=== PATIENT | female | born 1975 | race Caucasian/White ===

== ENCOUNTER 2016-05-11 14:12 | Emergency (ER) | payer OTHER ==
[~2016-05-11] VITALS: Ht 170.2 cm; Wt 85.4 kg
[~2016-05-11 14:12] MED LIST: EFFEXOR XR150 MG PO; FLEXERIL10 MG PO; MOTRIN800 MG PO; NORCO 5/3251 TABLET PO; PEN-VEE K,VEET500 MG PO; VICODIN,LORT1 TABLET PO; VYVANSE40 MG PO
[2016-05-11 16:42] VITALS: BP 120/77
== END 2016-05-11 16:43 | disposition home or self-care (01) ==
LOC: EME 14:12
DX: T14.8 Other injury of unspecified body region (principal); S05.11XA Contusion of eyeball and orbital tissues, right eye, initial encounter; S91.311A Laceration without foreign body, right foot, initial encounter; M79.645 Pain in left finger(s); Y04.0XXA Assault by unarmed brawl or fight, initial encounter; Y92.411 Interstate highway as the place of occurrence of the external cause; Y07.9 Unspecified perpetrator of maltreatment and neglect
CPT/HCPCS: 73140; 73630; 99281; 99284

== ENCOUNTER 2016-07-15 00:02 | Emergency (ER) | payer OTHER ==
[~2016-07-15] VITALS: Ht 170.2 cm; Wt 91.8 kg
[2016-07-15 00:11] VITALS: BP 96/86
[2016-07-15] MEDS ORDERED: ULTRAM50 MG PO (17:18)
[2016-07-15] MEDS ORDERED: PEN-VEE K,VEET500 MG PO (17:18)
== END 2016-07-15 02:20 | disposition left against medical advice (07) ==
LOC: EME 00:02
DX: K08.89 Other specified disorders of teeth and supporting structures (principal); Z53.21 Procedure and treatment not carried out due to patient leaving prior to being seen by health care provider

== ENCOUNTER 2016-07-15 16:46 | Emergency (ER) | payer OTHER ==
[~2016-07-15] VITALS: Ht 170.2 cm; Wt 91.2 kg
[2016-07-15] MEDS ORDERED: ULTRAM50 MG PO (17:18)
[2016-07-15] MEDS ORDERED: PEN-VEE K,VEET500 MG PO (17:18)
[2016-07-15 17:56] VITALS: BP 139/84
== END 2016-07-15 17:57 | disposition home or self-care (01) ==
LOC: EME 16:46
DX: K02.9 Dental caries, unspecified (principal)
CPT/HCPCS: 99281; 99282

== ENCOUNTER 2016-12-17 15:54 | Emergency (ER) | payer OTHER ==
[~2016-12-17] VITALS: Ht 170.2 cm; Wt 89.5 kg
[~2016-12-17 15:54] MED LIST changes: +ULTRAM50 MG PO
[2016-12-17] MEDS ORDERED: VYVANSE60 MG PO (16:18)
[2016-12-17] MEDS ORDERED: EFFEXOR XR150 MG PO (16:18)
[2016-12-17 17:24] LABS: HEMATOCRIT 36.1 % (36.0-46.0); MCH 26.7 PG (29.0-34.0); MCHC 31.9 G/DL (30.0-36.0); MCV 83.8 FL (83-99); MEAN PLAT.VOLUME 9.4 uM^3 (9.5-12.4); PLATELET COUNT 243 K/uL (156-360); RBC DIS.WIDTH-CV 12.8 % (11.8-14.6); RBC DIS.WIDTH-SD 39.3 % (39-53); RED BLOOD COUNT 4.31 M/uL (3.80-5.20); WHITE BLOOD COUNT 7.7 K/uL (4.1-10.2)
[2016-12-17 17:33] LABS: CHLORIDE 103 mEq/L (99-109); POTASSIUM 2.9 mEq/L (3.7-5.4); SODIUM 137 mEq/L (136-147)
[2016-12-17 17:35] LABS: GLUCOSE 78 mg/dL (70-99)
[2016-12-17 17:37] LABS: ANION GAP 12 MEQ/L (2-14)
[2016-12-17 17:39] LABS: GFR ESTIMATE (CALCULATED) > 59 mL/min/
[2016-12-17 17:40] LABS: UREA NITROGEN (BUN) 8 mg/dL (9-23)
[2016-12-17 17:47] LABS: QUANTITATIVE HCG < 4.0 MIU/ML
[2016-12-17] MEDS ORDERED: NORCO 5/3251 TABLET PO (21:46)
[2016-12-17 21:57] VITALS: BP 122/74
== END 2016-12-17 22:01 | disposition home or self-care (01) ==
LOC: EME 15:54
PROVIDERS: Emergency Medicine
DX: S00.12XA Contusion of left eyelid and periocular area, initial encounter (principal); S49.92XA Unspecified injury of left shoulder and upper arm, initial encounter; S02.5XXA Fracture of tooth (traumatic), initial encounter for closed fracture; Y09 Assault by unspecified means; Y07.01 Husband, perpetrator of maltreatment and neglect; Z87.891 Personal history of nicotine dependence
CPT/HCPCS: 70450; 70480; 70498; 73030; 80048; 84702; 85027; 99281; 99285; J7030

== ENCOUNTER 2016-12-28 03:11 | Emergency (ER) | payer OTHER ==
[~2016-12-28] VITALS: Ht 172.7 cm; Wt 88.0 kg
[~2016-12-28 03:11] MED LIST changes: +VYVANSE60 MG PO
[2016-12-28] MEDS ORDERED: INDOCIN50 MG PO (05:20)
[2016-12-28] MEDS ORDERED: NORCO 10/3251 TABLET PO (05:20)
[2016-12-28 05:45] VITALS: BP 122/80
== END 2016-12-28 05:50 | disposition home or self-care (01) ==
LOC: EME 03:11
DX: M75.02 Adhesive capsulitis of left shoulder (principal); S46.002A Unspecified injury of muscle(s) and tendon(s) of the rotator cuff of left shoulder, initial encounter; X50.1XXA Overexertion from prolonged static or awkward postures, initial encounter
CPT/HCPCS: 73030; 99281; 99283

== ENCOUNTER 2017-04-16 12:36 | Emergency (ER) | payer OTHER ==
[~2017-04-16] VITALS: Ht 160 cm; Wt 87.3 kg
[~2017-04-16 12:36] MED LIST changes: +INDOCIN50 MG PO; +NORCO 10/3251 TABLET PO
[2017-04-16 15:05] LABS: HEMATOCRIT 36.8 % (36.0-46.0); HEMOGLOBIN 11.8 G/DL (11.9-15.5); MCH 27.6 PG (29.0-34.0); MCHC 32.1 G/DL (30.0-36.0); PLATELET COUNT 246 K/uL (156-360); RBC DIS.WIDTH-CV 15.4 % (11.8-14.6); RBC DIS.WIDTH-SD 47.6 % (39-53); RED BLOOD COUNT 4.28 M/uL (3.80-5.20); WHITE BLOOD COUNT 6.9 K/uL (4.1-10.2)
[2017-04-16 15:17] LABS: ALBUMIN 3.3 g/dL (3.2-4.8); CHLORIDE 108 mEq/L (99-109); POTASSIUM 4.2 mEq/L (3.7-5.4); SODIUM 139 mEq/L (136-147)
[2017-04-16 15:19] LABS: GLUCOSE 85 mg/dL (70-99)
[2017-04-16 15:21] LABS: TOTAL BILIRUBIN 0.5 mg/dL (0.0-1.0)
[2017-04-16 15:23] LABS: ALKALINE PHOSPHATASE 92 IU/L (3-129); CREATININE 0.7 mg/dL (0.6-1.3); GFR ESTIMATE (CALCULATED) > 59 mL/min/
[2017-04-16 15:24] LABS: UREA NITROGEN (BUN) 7 mg/dL (9-23)
[2017-04-16 15:25] LABS: AST (GOT) 14 IU/L (2-34)
[2017-04-16 15:26] LABS: ALT (GPT) 10 IU/L (3-49)
[2017-04-16 15:34] LABS: QUANTITATIVE HCG < 4.0 MIU/ML
[2017-04-16 18:12] VITALS: BP 134/77
[2017-04-16 18:15] LABS: APPEARANCE SL.HAZY ((CLEAR)); BILIRUBIN NEGATIVE; BLOOD SMALL; COLOR YELLOW ((YELLOW)); GLUCOSE (STRIP) NEGATIVE; KETONES NEGATIVE; LEUKOCYTES LARGE; NITRITE POSITIVE; PROTEIN (STRIP) NEGATIVE; UROBILINOGEN 0.2 MG/DL (0.2-1.0)
[2017-04-16 18:42] LABS: BACTERIA NONE SEEN /HPF; EPITHELIAL CELLS RARE /HPF; MUCUS NONE SEEN /LPF; WHITE BLOOD CELLS TNTC /HPF (0-5)
[2017-04-16] MEDS ORDERED: KEFLEX500 MG PO (18:47)
== END 2017-04-16 18:13 | disposition home or self-care (01) ==
LOC: EME 12:36
PROVIDERS: Nurse Practitioner Family
DX: S01.81XA Laceration without foreign body of other part of head, initial encounter (principal); S01.511A Laceration without foreign body of lip, initial encounter; N39.0 Urinary tract infection, site not specified; Y04.8XXA Assault by other bodily force, initial encounter; Y07.03 Male partner, perpetrator of maltreatment and neglect; Z23 Encounter for immunization
CPT/HCPCS: 70450; 70491; 80053; 81003; 84702; 85027; 99281; 99284; J1885

== ENCOUNTER 2017-07-14 11:57 | Inpatient (IN) | payer OTHER ==
[~2017-07-14] VITALS: Ht 172.7 cm; Wt 84.1 kg
[~2017-07-14 11:57] MED LIST changes: +KEFLEX500 MG PO
[2017-07-14 13:12] LABS: BASOPHIL (%) 0.8 % (0-1); EOSINOPHIL (%) 1.3 % (0-5); EOSINOPHIL COUNT 0.1 K/uL (0-0.3); HEMATOCRIT 33.8 % (36.0-46.0); HEMOGLOBIN 10.8 G/DL (11.9-15.5); IMMATURE GRANULOCYTE (%) 0.2 % (0.0-0.7); LYMPHOCYTE (%) 26.3 % (15-42); LYMPHOCYTE COUNT 1.4 K/uL (1.0-2.8); MCH 27.1 PG (29.0-34.0); MCV 84.9 FL (83-99); MONOCYTE (%) 8.7 % (3-12); MONOCYTE COUNT 0.5 K/uL (0-0.8); NEUTROPHIL (%) 62.7 % (45-76); NEUTROPHIL COUNT 3.3 K/uL (1.8-6.4); PLATELET COUNT 254 K/uL (156-360); RBC DIS.WIDTH-CV 15.6 % (11.8-14.6); RBC DIS.WIDTH-SD 48.8 % (39-53); RED BLOOD COUNT 3.98 M/uL (3.80-5.20); WHITE BLOOD COUNT 5.3 K/uL (4.1-10.2)
[2017-07-14 13:16] LABS: APPEARANCE SL.HAZY ((CLEAR)); BILIRUBIN NEGATIVE; BLOOD NEGATIVE; COLOR AMBER ((YELLOW)); GLUCOSE (STRIP) NEGATIVE; KETONES NEGATIVE; LEUKOCYTES TRACE; NITRITE NEGATIVE; PROTEIN (STRIP) NEGATIVE; SPECIFIC GRAVITY 1.019 (1.000-1.030)
[2017-07-14 13:26] LABS: CHLORIDE 109 mEq/L (99-109); SODIUM 143 mEq/L (136-147)
[2017-07-14 13:26] LABS: BACTERIA NONE SEEN /HPF; CALCIUM OXALATE CRYSTALS 2+ /HPF; EPITHELIAL CELLS 3+ /HPF; HYALINE CASTS 0-5 /LPF; MUCUS TRACE /LPF; RED BLOOD CELLS 0-5 /HPF (0-5); WHITE BLOOD CELLS 0-5 /HPF (0-5)
[2017-07-14 13:28] LABS: GLUCOSE 88 mg/dL (70-99)
[2017-07-14 13:31] LABS: SERUM ETHYL ALCOHOL < 10 mg/dL
[2017-07-14 13:32] LABS: CREATININE 0.7 mg/dL (0.6-1.3); GFR ESTIMATE (CALCULATED) > 59 mL/min/
[2017-07-14 13:33] LABS: UREA NITROGEN (BUN) 8 mg/dL (9-23)
[2017-07-14 13:50] LABS: AMPHETAMINE NEGATIVE (500 ng/mL); BARBITURATES NEGATIVE (200 ng/mL); BENZODIAZEPINES NEGATIVE (150 ng/mL); BUPRENORPHINE NEGATIVE (10 ng/mL); COCAINE NEGATIVE (150 ng/mL); METHADONE NEGATIVE (200 ng/mL); METHAMPHETAMINE NEGATIVE (500 ng/mL); OPIATES (MORPHINE) NEGATIVE (100 ng/mL); OXYCODONE PRESUMPTIVE POSITIVE (100 ng/mL); PHENCYCLIDINE NEGATIVE (25 ng/mL); PROPOXYPHENE NEGATIVE (300 ng/mL); THC CANNABINOIDS PRESUMPTIVE POSITIVE (50 ng/mL); TRICYCLIC ANTIDEPRESSANTS NEGATIVE (300 ng/mL)
[2017-07-14 16:23] VITALS: BP 113/59
[2017-07-15 07:40] VITALS: BP 102/55
[2017-07-15 09:51] VITALS: BP 109/60
[2017-07-15 11:22] VITALS: BP 124/74
[2017-07-15 15:52] VITALS: BP 106/57
[2017-07-15 21:15] VITALS: BP 113/66
[2017-07-16 07:50] VITALS: BP 110/70
[2017-07-16 15:45] VITALS: BP 103/52
[2017-07-16 21:29] VITALS: BP 131/67
[2017-07-17 09:45] VITALS: BP 112/59
[2017-07-17] MEDS ORDERED: EFFEXOR XR150 MG PO (10:58)
== END 2017-07-17 12:14 | disposition other institution (70) | DRG 885 ==
LOC: EME 11:57 → 1WEST 13:36 → EDOF 13:36 → 1WEST 16:22 → ENRESERV 16:22 → 1WEST 07-17 12:14
PROVIDERS: Emergency Medicine
DX: F33.1 Major depressive disorder, recurrent, moderate (principal); R45.851 Suicidal ideations; F11.20 Opioid dependence, uncomplicated; F43.10 Post-traumatic stress disorder, unspecified; F90.9 Attention-deficit hyperactivity disorder, unspecified type; F14.10 Cocaine abuse, uncomplicated; Z59.0 Homelessness; Z87.820 Personal history of traumatic brain injury
CPT/HCPCS: 80048; 81003; 84999; 85025; 90837; 97150 GO; 97165 GO; 99281; 99285; G0480; Q0169; Q0177